=== PATIENT | male | born 1965 | race Caucasian/White ===

== ENCOUNTER 2018-04-01 20:54 | Observation (INO) ==
[2018-04-01] MEDS ORDERED: D5% in Water 1,000 ML IVC PRN (23:16)
[2018-04-01] MEDS ORDERED: Acetaminophen 325 MG TABLET PO PRN (23:16)
[2018-04-01] MEDS ORDERED: Naloxone 0.4 MG/ML INJ IVP PRN (23:16)
[2018-04-01] MEDS ORDERED: *HR* Dextrose 50 % in Water (Syg) 50 ML SYRINGE IVP PRN (23:16)
[2018-04-01] MEDS ORDERED: Dextrose Gel 15 GM/37.5 ML TUBE PO PRN ×2 (23:16)
--- NOTE | 2018-04-01 23:43 | Internal Med History&Physical ---
Date of Encounter: 04/01/18 Time of Encounter: 22:45 Internal Medicine - H&P: HPI Chief complaint: left testicular pain and scortal swelling Admitted From: Hospital to Hospital Transfer Plans for Post Hospital Care: Home History of present illness: Mr. Oliver is a 53 year old male who presents in transfer from [facility] Emergency Department. Patient presented to the ER there with complaints of left-sided testicular pain, scrotal swelling, and redness of the scrotum. Symptoms started abruptly since overnight last night. He had routine labs and imaging performed there suggesting possible testicular abscess versus epididymitis. Of note, there was no evidence of testicular torsion on ultrasound. CT imaging also revealed the testicular lesion to be suspicious for either abscess, hematoma, or complex hydrocele. Phone call was made to Dr. Calvillo from [facility] and he recommended transfer to [place], admission to hospitalist with IV antibiotics, and that he would consult on patient. I accepted the patient in transfer after discussing with [place] staff. Upon my assessment of the patient, patient confirms above history. He does chronic intermittent self-catheterization due to incomplete bladder emptying. He has had recurrent UTI in the past, but he has never had pyelonephritis. He is not sexually active presently. He denies any prior history of prostate problems. He does admit to having had subjective fevers and chills since yesterday. He denies any nausea, vomiting, or diarrhea. Past Med Surg Social Fam HX - Past Medical History Attestation: Yes The following information was validated with the patient. Source: patient, other ([facility] ER records) Medical history: COPD, coronary artery disease, diabetes, hypertension - Past Surgical History Surgical History: angioplasty/stent, coronary bypass (CABG) Additional surgical history: CABG x2 - Social History Smoking Status: Former smoker Smokeless Tobacco Status: Yes (Occasional) Alcohol use: rarely Drug use: none Current living situation: Home Activity Level: Independent ambulation Recent Out of Country Travel Within the Last 8 Weeks: No - Family History Mother History Unknown: Yes Father History Unknown: Yes Internal Medicine - H&P: Meds Aspirin 81 mg PO QAM 04/01/18 [History] Atorvastatin 40 mg PO DAILY 04/01/18 [History] Lantus Solostar 10 units SQ HS 04/01/18 [History] Loperamide [Imodium] 2 mg PO Q6H PRN 04/01/18 [History] Metoprolol [Lopressor] 12.5 mg PO BID 04/01/18 [History] Allergy/AdvReac Type Severity Reaction Status Date / Time No Known Allergies Allergy Verified 04/01/18 22:51 - Constitutional Constitutional: chills, fever(s), no night sweats - EENT Eyes: no blurry vision, no change in vision Ears: no ear pain, no tinnitus Nose, mouth and throat: no nasal congestion, no sinus pressure, no sore throat - Cardiovascular Cardiovascular ROS IM: no chest pain, no dyspnea, no dyspnea on exertion, no edema, no orthopnea, no paroxysmal nocturnal dyspnea, no syncope - Respiratory Respiratory: no cough, no hemoptysis, no chest congestion, no excessive phlegm production, no change in phlegm color - Gastrointestinal Gastrointestinal: abdominal pain (suprapubic), nausea, vomiting, no diarrhea, no hematemesis, no hematochezia, no melena - Genitourinary Genitourinary ROS male: difficulty urinating, dysuria, flank pain, hematuria, scrotal swelling, testicular mass - Musculoskeletal Musculoskeletal ROS IM: no arthralgias, no back pain - Integumentary Integumentary IM: no rash, no jaundice - Neurological Neurological ROS: no dizziness, no focal weakness, no frequent falls, no headache(s) - Psychiatric Psychiatric: no anxiety, no depression - Endocrine Endocrine IM: no polydipsia, no polyphagia, no polyuria - Allergic/Immunologic Allergic/Immunologic: no wheezing, no GI upset with certain foods - Constitutional Vitals: Temp Pulse Resp BP Pulse Ox 97.6 F 65 14 145/84 99 04/01/18 22:27 04/01/18 22:27 04/01/18 22:27 04/01/18 22:27 04/01/18 22:27 General appearance: Present: cooperative, A&O X 3, pleasant, answers questions appropriately Exam: see below - Head Head exam: Present: normal inspection - Eye Eye exam: Present: EOMI, PERRL. Absent: scleral icterus Pupils: Present: normal accommodation - ENT ENT exam: Present: mucous membranes dry, normal exam, normal oropharynx - Neck Neck exam general surgery: Present: full ROM, supple. Absent: tenderness, nuchal rigidity, thyromegaly - Respiratory Respiratory exam: Present: CTAB. Absent: chest wall tenderness, rales, respiratory distress, rhonchi, wheezes - Cardiovascular Cardiovascular exam: Present: RRR, +S1, +S2. Absent: diastolic murmur, systolic murmur - GI/Abdominal GI/Abdominal exam: Present: normal bowel sounds, soft, tenderness (suprapubic). Absent: guarding, hepatomegaly, mass, rebound, splenomegaly - exam: Present: circumcision, scrotal swelling (redness, pain, and swelling of left side of scrotum/testicle), testicular tenderness (left). Absent: urethral discharge - Extremities Exam Extremities exam: Present: warm, radial pulses palpable and symmetrical. Absent: calf tenderness, joint swelling, pedal edema, tenderness - Back Exam Back exam: Present: CVA tenderness (L), CVA tenderness (R), normal inspection - Neurological Exam Neurological exam: Present: alert, CN II-XII intact, oriented X3, no focal deficits, strengths equal and symetr throughout - Psychiatric Psychiatric exam: Present: normal affect, normal mood - Skin Skin exam: Present: dry, intact, warm. Absent: rash Internal Med - H&P Results - Labs Labs: I reviewed labs from [place] and they include the following: WBC 11.0 Hemoglobin 10.8 Hematocrit 34.5 Segmented neutrophils 86% Monocytes 7% Lymphocytes 5.6% Urinalysis nitrate positive, leukocyte esterase negative, trace blood in the urine CT of the pelvis reveals complex left intrascrotal fluid collection may be s econdary to left hydrocele, intrascrotal hematoma, or abscess. There also appears to have findings of epididymitis. He also has diffuse scrotal wall thickening and edema. Scrotal ultrasound reveals normal testis with no evidence of torsion. - Assessment and plan (1) Cellulitis of scrotum Current Visit: Yes Status: Acute Assessment and plan: 1. Will culture blood and urine. 2. Will start IV antibiotics to include coverage for GI/ disha (Zosyn/Cipro). 3. Given recurrent UTI and chronic intermittent self cath, will add Vancomcyin to cover MRSA. Patient denies history of MRSA. 4. Consult urology; Dr. Calvillo already spoke with [facility] staff [place]. (2) Left testicular pain Current Visit: Yes Status: Acute Assessment and plan: 1. Patient has pain on left testicle. 2. No torsion on ultrasound. 3. IV antibiotics and pain control. 4. Urology consulted. (3) IDDM (insulin dependent diabetes mellitus) Current Visit: Yes Status: Chronic Assessment and plan: 1. Will place on SSI and monitor glucose. 2. Resume basal insulin tomorrow. (4) CAD (coronary artery disease) Current Visit: Yes Status: Chronic Assessment and plan: 1. No anginal symptoms. 2. Will obtain baseline EKG and place on monitor for now. 3. Resume home meds as appropriate once meds are updated and verified. Qualifiers: Coronary Disease-Associated Artery/Lesion type: [place] artery [place] vs. transplanted heart: [place] heart Associated angina: without angina Qualified Code(s): I25.10 - Atherosclerotic heart disease of [place] coronary artery without angina pectoris (5) DVT prophylaxis Current Visit: Yes Status: Acute Assessment and plan: 1. Heparin SQ.
[2018-04-02] MEDS: Insulin LISPRO 300 UNITS/3 ML VIAL SQ SCH ×6 (00:10→21:17)
[2018-04-02] MEDS: 0.9 % Sodium Chloride 1,000 ML IVC SCH ×2 (00:57→11:28)
[2018-04-02] MEDS: Piperacillin/Tazobactam 3.375 GM in 0.9 % Sodium Chloride Mini Bag 100 ML IVPB SCH ×2 (00:59→08:44)
[2018-04-02] MEDS: *HR* HYDROcodone/Acet 5/325 mg TABLET PO PRN ×3 (01:01→17:35)
[2018-04-02 01:08] LABS: Basophils % 0.2 %; Eosinophils # 0.1 K/mcL (0.0-0.6); Eosinophils % 1.1 %; Hematocrit 34.3 % (37.5-50.1); Hemoglobin 10.7 g/dL (12.9-16.9); Immature Granulocytes % 0.3 % (0-4); Lymphocytes % 10.2 %; Mean Corpuscular HGB Conc 31.2 g/dL (31.6-35.5); Mean Corpuscular Hemoglobin 25.3 pg (28.0-33.3); Mean Corpuscular Volume 81.1 fL (83.0-100.0); Mean Platelet Volume 9.7 fL (9.4-12.4); Monocytes # 0.6 K/mcL (0.0-1.3); Monocytes % 5.8 %; Neutrophils # 7.8 K/mcL (1.6-8.9); Platelet Count 207 K/mcL (140-400); Red Blood Count 4.23 M/mcL (4.19-5.50); Red Cell Distribution Width 13.1 % (11.5-14.5); Segmented Neutrophils % 82.4 %
[2018-04-02 01:15] LABS: INR 1.2; Prothrombin Time 13.3 Seconds (9.4-12.1)
[2018-04-02 01:17] LABS: Activated Partial Thrombo Time 40.4 Seconds (26.0-36.0)
[2018-04-02 01:29] LABS: Alanine Aminotransferase 25 Units/L (7-52); Albumin 4.4 g/dL (3.5-5.7); Albumin/Globulin Ratio 1.1 (1.1-2.2); Alkaline Phosphatase 83 Units/L (34-104); Aspartate Amino Transferase 17 Units/L (13-39); BUN/Creatinine Ratio 26 (6-26); Bilirubin,Total 0.5 mg/dL (0.3-1.0); Blood Urea Nitrogen 33 mg/dL (6-20); Calcium 10.5 mg/dL (8.6-10.3); Carbon Dioxide 30 mEq/L (23-29); Chloride 101 mEq/L (98-107); Globulin 4.1 g/dL (2.4-3.5); Glucose 83 mg/dL (70-105); Osmolality,Calculated 296 (280-300); Potassium 3.9 mEq/L (3.5-5.1); Sodium 140 mEq/L (136-145); Total Protein 8.5 g/dL (6.4-8.9); eGFR For Non-African Americans 58 (> 60)
[2018-04-02] MEDS: *HR* Heparin 5,000 UNIT/ML VIAL SQ SCH ×2 (06:25→17:10)
--- NOTE | 2018-04-02 07:52 | Urology - Consult Note ---
Date of Encounter: 04/02/18 Time of Encounter: 07:46 - Assessment and Plan (1) Epididymo-orchitis Current Visit: Yes Status: Acute Assessment and plan: Outside ultrasound and CT scan suggest possibility of a scrotal abscess as there was a complex fluid collection near the testicle and near the penoscrotal junction. My exam today is consistent with epididymal orchitis without obvious evidence for a abscess. No indication for repeat imaging or surgical intervention at this time. He has not experienced a fever or signs of sepsis. I recommend 2 weeks of cultures of antibiotic antibiotics - microbiology is pending. Continue intermittent catheterizations which he performs twice per day. We will obtain renal/bladder ultrasound to evaluate for a nidus because of his recurrent UTIs. He also should maintain strict scrotal rest with scrotal support. The nodular firmness to the testicle can take a few weeks to resolve in this setting. We'll continue to follow the patient while he is in the hospital. Urology CN:HPI Consult date: 04/02/18 History of present illness: pt transferred from [place] last night. 24 hour hx of left scrotal swelling. no fever. pt performs SIC twice per day has had issues with UTIs over the last few months and treated in the ER. no hospitalization. has been seen by [facility] in the past. Past Med Surg Social Fam HX - Past Medical History Medical history: COPD, coronary artery disease, diabetes, hypertension Psychiatric history: bipolar, depression, schizophrenia - Past Surgical History Surgical History: angioplasty/stent, coronary bypass (CABG) Additional surgical history: CABG x2 - Social History Smoking Status: Former smoker Smokeless Tobacco Status: Yes (Occasional) Alcohol use: rarely Drug use: none - Family History Mother History Unknown: Yes Father History Unknown: Yes Medications and Allergies Aspirin 81 mg PO QAM 04/01/18 [History] Atorvastatin 40 mg PO DAILY 04/01/18 [History] Lantus Solostar 10 units SQ HS 04/01/18 [History] Loperamide [Imodium] 2 mg PO Q6H PRN 04/01/18 [History] Metoprolol [Lopressor] 12.5 mg PO BID 04/01/18 [History] Allergy/AdvReac Type Severity Reaction Status Date / Time No Known Allergies Allergy Verified 04/01/18 22:51 Review of Systems - Constitutional fatigue, no chills, no fever(s) - EENT Nose, mouth and throat: no dizziness - Cardiovascular no chest pain - Respiratory no cough - Gastrointestinal no abdominal pain - Genitourinary dysuria, scrotal swelling, testicular mass, testicular pain - Musculoskeletal back pain - Integumentary no erythema - Neurological no confusion - Psychiatric no anxiety - Hematologic/Lymphatic no easy bleeding - Allergic/Immunologic no throat swelling Exam Initial Vital Signs Temp Pulse Resp BP Pulse Ox 97.6 F 65 14 145/84 99 04/01/18 22:27 04/01/18 22:27 04/01/18 22:27 04/01/18 22:27 04/01/18 22:27 - General physical appearance Present: well developed, no distress - Eyes Present: PERRL - ENT Present: normal nares - Neck Present: no masses - Respiratory Present: normal respiratory effort - Cardiovascular Cardiovascular exam IM: RRR - Abdomen Abdomen: Present: soft. Absent: distended, suprapubic tenderness - Genitourinary normal penis with no external lesions - Integumentary Absent: no rash - Neurologic Present: normal coordination. Absent: disoriented, confused - Additional Findings Left testicle is double the size of the right. It is firm and tender. This is consistent with epididymal orchitis. I carefully evaluated the area including the scrotal skin, penis, penoscrotal junction. No evidence of obvious scrotal abscess. There is minimal induration of the skin and it is not fixed to the testicle. Urology Results - Labs 04/02/18 00:13 04/02/18 00:12 Abnormal lab results Hgb 10.7 g/dL (12.9-16.9) L 04/02/18 00:13 Hct 34.3 % (37.5-50.1) L 04/02/18 00:13 MCV 81.1 fL (83.0-100.0) L 04/02/18 00:13 MCH 25.3 pg (28.0-33.3) L 04/02/18 00:13 MCHC 31.2 g/dL (31.6-35.5) L 04/02/18 00:13 PT 13.3 Seconds (9.4-12.1) H 04/02/18 00:12 APTT 40.4 Seconds (26.0-36.0) H 04/02/18 00:12 Carbon Dioxide 30 mEq/L (23-29) H 04/02/18 00:12 BUN 33 mg/dL (6-20) H 04/02/18 00:12 Est GFR (Non-Af Amer) 58 (> 60) L 04/02/18 00:12 Calcium 10.5 mg/dL (8.6-10.3) H 04/02/18 00:12 Globulin 4.1 g/dL (2.4-3.5) H 04/02/18 00:12 Diabetes panel 04/02/18 Range/Units 00:12 Sodium 140 (136-145) mEq/L Potassium 3.9 (3.5-5.1) mEq/L Chloride 101 (98-107) mEq/L Carbon Dioxide 30 H (23-29) mEq/L BUN 33 H (6-20) mg/dL Creatinine 1.29 (0.70-1.30) mg/dL Glucose 83 (70-105) mg/dL Calcium 10.5 H (8.6-10.3) mg/dL AST 17 (13-39) Units/L ALT 25 (7-52) Units/L Alkaline Phosphatase 83 (34-104) Units/L Albumin 4.4 (3.5-5.7) g/dL Calcium panel 04/02/18 Range/Units 00:12 Calcium 10.5 H (8.6-10.3) mg/dL Albumin 4.4 (3.5-5.7) g/dL Pituitary panel 04/02/18 Range/Units 00:12 Sodium 140 (136-145) mEq/L Potassium 3.9 (3.5-5.1) mEq/L Chloride 101 (98-107) mEq/L Carbon Dioxide 30 H (23-29) mEq/L BUN 33 H (6-20) mg/dL Creatinine 1.29 (0.70-1.30) mg/dL Glucose 83 (70-105) mg/dL Calcium 10.5 H (8.6-10.3) mg/dL Adrenal panel 04/02/18 Range/Units 00:12 Sodium 140 (136-145) mEq/L Potassium 3.9 (3.5-5.1) mEq/L Chloride 101 (98-107) mEq/L Carbon Dioxide 30 H (23-29) mEq/L BUN 33 H (6-20) mg/dL Creatinine 1.29 (0.70-1.30) mg/dL Glucose 83 (70-105) mg/dL Calcium 10.5 H (8.6-10.3) mg/dL Total Bilirubin 0.5 (0.3-1.0) mg/dL AST 17 (13-39) Units/L ALT 25 (7-52) Units/L Alkaline Phosphatase 83 (34-104) Units/L Albumin 4.4 (3.5-5.7) g/dL All other labs normal. Consult Discharge Plan - Plan Referrals: NONE,PCP [Primary Care Provider] -
--- NOTE | 2018-04-02 11:50 | Internal Med Progress Note ---
Hospitalist Progress Note - Encounter Date of Encounter: 04/02/18 Time of Encounter: 11:49 - Subjective Interval History: Patient seen and examined this morning. No acute overnight events. Still with scrotal pain. Slightly better. No fevers but feels fold. Denies N/V. c/o Headache. No blurry vision, palpiation, cp or sob. - Exam Vitals: Temp Pulse Resp BP Pulse Ox 97.7 F 66 15 115/74 100 04/02/18 10:07 04/02/18 10:07 04/02/18 10:07 04/02/18 10:07 04/02/18 10:07 Exam: General: In no acute distress. Conversant. Respiratory exam: CTAB. no accessory muscle use, rales, rhonchi, wheezes Cardiovascular exam: RRR, +S1, +S2. no murmur, gallop, rubs. GI/Abdominal exam: Non-tender, Non-distended, normal bowel sounds, soft, no peritoneal signs. exam: No CVA tenderness. Lt testicle enlarged and tender. Twice the size than Rt. No cellulitis or induration noted. Extremities exam: full ROM, no pedal edema, warm, pulses palpable in b/l lower extremities. no calf tenderness Neurological exam: CN II-XII intact, AO X3, no focal deficits. no pronater drift, facial droop, speech deficit Skin exam: No skin rash, ulcer, purpura or ecchymosis. - Assessment and Plan (1) Cellulitis of scrotum Current Visit: Yes Status: Acute (2) Left testicular pain Current Visit: Yes Status: Acute (3) IDDM (insulin dependent diabetes mellitus) Current Visit: Yes Status: Chronic (4) CAD (coronary artery disease) Current Visit: Yes Status: Chronic (5) DVT prophylaxis Current Visit: Yes Status: Acute - Summary of Assessment and Plan Summary of Assessment and Plan: Left testicular pain, scrotal swelling and redness - Transferred from [place]. Urinalysis nitrate positive, leukocyte esterase negative, trace blood in the urine. CT pelvis showed complex left intrascrotal fluid collection ( initially suspected hydrocele, intrascrotal hematoma, abscess vs epididymitis) - Scrotal ultrasound with no evidence of torsion. - chronic self cath and h/o UTI. f/u blood and urine culture. c/w self cath as needed. - On IV antibiotics. Will dc zosyn/cipro. c/w Vancomycin/levaquin. pain control. Will adjust abx based on urine/blood culture. - Urology following. Recommendations appreciated. Likely epididymitis possibly related to self cath. No intervention planned. Will need 2 weeks course of antibiotics. IDDM - c/w SSI and monitor glucose. - Resume basal insulin. No intervention planeed. CAD - No anginal symptoms. h/o severe coronary artery disease with 2 open heart surgery. Hence is DNRCCA - resume home meds DVT prophylaxis - Heparin SQ. - Time Spent with Patient Total time spent is greater than 50% in coordination of care (as documented) at patient's floor/unit and/or counseling patient: Internal Medicine: Result - Labs CBC & Chem 7: 04/02/18 00:13 04/02/18 00:12 Labs: Short CBC 04/02/18 Range/Units 00:13 WBC 9.4 (4.3-11.1) K/mcL Hgb 10.7 L (12.9-16.9) g/dL Hct 34.3 L (37.5-50.1) % Plt Count 207 (140-400) K/mcL Neutrophils # 7.8 (1.6-8.9) K/mcL BMP 04/02/18 00:12 Sodium 140 Potassium 3.9 Chloride 101 Carbon Dioxide 30 H BUN 33 H Creatinine 1.29 Glucose 83 Calcium 10.5 H Liver Function 04/02/18 Range/Units 00:12 Total Bilirubin 0.5 (0.3-1.0) mg/dL AST 17 (13-39) Units/L ALT 25 (7-52) Units/L Alkaline Phosphatase 83 (34-104) Units/L Albumin 4.4 (3.5-5.7) g/dL - ABG Interpretation ABG results: PT/INR, D-dimer PT 13.3 Seconds (9.4-12.1) H 04/02/18 00:12 Consult Discharge Plan - Plan Referrals: NONE,PCP [Primary Care Provider] - ___ (4) CAD (coronary artery disease) Qualifiers: Coronary Disease-Associated Artery/Lesion type: [place] artery [place] vs. transplanted heart: [place] heart Associated angina: without angina Qualified Code(s): I25.10 - Atherosclerotic heart disease of [place] coronary artery witho ut angina pectoris
[2018-04-02] MEDS: Aspirin 81 MG TAB.CHEW PO SCH (16:10)
[2018-04-02 16:21] LABS: Bilirubin,Urine Negative (Negative); Blood,Urine Negative (Negative); Clarity,Urine Clear (Clear); Color,Urine Yellow (Yellow); Glucose,Urine (UA) Normal (Normal); Ketones,Urine Negative (Negative); Leukocyte Esterase,Urine Trace (Negative); Nitrite,Urine Negative (Negative); Protein,Urine Negative (Neg-Trace); Specific Gravity,Urine 1.014 (1.010-1.025); Urobilinogen,Urine Normal (Normal)
[2018-04-02 16:23] LABS: Bacteria,Urine None Seen per hpf (None-Few); Hyaline Casts,Urine None Seen per lpf (None-Few); RBC,Urine 0-3 per hpf (0-3); Squamous Epithelial Cell,Urine Moderate per lpf (None-Few)
[2018-04-02] MEDS: levoFLOXacin 500 MG TABLET PO SCH (17:10)
[2018-04-02] MEDS ORDERED: Insulin DETEMIR 100 UNIT/ML X5UNITS SQ SCH (21:00)
[2018-04-03] MEDS: *HR* Heparin 5,000 UNIT/ML VIAL SQ SCH ×2 (06:11→18:32)
[2018-04-03] MEDS: Insulin LISPRO 300 UNITS/3 ML VIAL SQ SCH ×4 (07:56→20:43)
[2018-04-03] MEDS: Aspirin 81 MG TAB.CHEW PO SCH (07:59)
--- NOTE | 2018-04-03 09:25 | Urology Progress Note ---
<Tiffanie Cian - Last Filed: 04/03/18 09:23> Date of Encounter: 04/03/18 Time of Encounter: 08:05 - Assessment and Plan (1) Epididymo-orchitis Current Visit: Yes Status: Acute Assessment and plan: Patient is a 53-year-old male who presents with a history of epididymo-orchitis. Vital signs are stable and afebrile. White blood cell count is within normal range. Complete renal ultrasound was reassuring, and patient is receiving IV Levaquin. Plan to continue with strict scrotal support and to continue antibi otics 2 weeks after discharge. Progress Note Narrative: Patient seen and examined sitting upright in bed in apparent distress. Nurse at bedside. Patient states scrotal pain is improved. Patient is tolerating normal diet without nausea or vomiting. Patient is voiding frequently and without difficulty. Patient is performing self-catheterization 1-2 times daily. Patient denies fever, chills, flank pain, gross hematuria. Objective Initial Vital Signs Temp Pulse Resp BP Pulse Ox 97.6 F 65 14 145/84 99 04/01/18 22:27 04/01/18 22:27 04/01/18 22:27 04/01/18 22:27 04/01/18 22:27 - General physical appearance Present: well developed, no distress, no pain - Respiratory Present: normal expansion, normal respiratory effort - Abdomen Present: soft, non tender - Genitourinary Present: normal penis with no external lesions tender: left, scrotal mass/hydrocele: left (edema and induration ) - Integumentary Present: no rash, no abnormal pigmentation - Musculoskeletal Present: normal posture - Psychiatric Present: oriented to time, oriented to person, oriented to place, speech is normal, memory intact - Labs 04/02/18 00:13 04/02/18 00:12 Consult Discharge Plan - Plan Referrals: NONE,PCP [Primary Care Provider] - <Junaid Calvillo - Last Filed: 04/04/18 06:31> Date of Encounter: 04/04/18 - Assessment and Plan (1) Epididymo-orchitis Current Visit: Yes Status: Acute Assessment and plan: Patient seen in conjunction with physician casting assistant. Agree with plan and treatment. Objective Initial Vital Signs Temp Pulse Resp BP Pulse Ox 97.6 F 65 14 145/84 99 04/01/18 22:27 04/01/18 22:27 04/01/18 22:27 04/01/18 22:27 04/01/18 22:27 - Labs 04/02/18 00:13 04/02/18 00:12
[2018-04-03] MEDS: *HR* HYDROcodone/Acet 5/325 mg TABLET PO PRN (10:57)
--- NOTE | 2018-04-03 13:21 | Internal Med Progress Note ---
Hospitalist Progress Note - Encounter Date of Encounter: 04/03/18 Time of Encounter: 10:36 - Subjective Interval History: Patient seen and examined this morning. No acute overnight events. Pain slightly better. No fevers, N/V. No blurry vision, palpiation, cp or sob. - Exam Vitals: Temp Pulse Resp BP Pulse Ox 97.9 F 72 16 138/83 98 04/03/18 11:01 04/03/18 11:01 04/03/18 11:01 04/03/18 11:01 04/03/18 11:01 Exam: General: In no acute distress. Conversant. Respiratory exam: CTAB. no accessory muscle use, rales, rhonchi, wheezes Cardiovascular exam: RRR, +S1, +S2. no murmur, gallop, rubs. GI/Abdominal exam: Non-tender, Non-distended, normal bowel sounds, soft, no peritoneal signs. exam: No CVA tenderness. Lt testicle enlarged and tender. Twice the size than Rt. No cellulitis or induration noted. Extremities exam: full ROM, no pedal edema, warm, pulses palpable in b/l lower extremities. no calf tenderness Skin exam: No skin rash, ulcer, purpura or ecchymosis. - Assessment and Plan (1) Cellulitis of scrotum Current Visit: Yes Status: Acute (2) Left testicular pain Current Visit: Yes Status: Acute (3) IDDM (insulin dependent diabetes mellitus) Current Visit: Yes Status: Chronic (4) CAD (coronary artery disease) Current Visit: Yes Status: Chronic (5) DVT prophylaxis Current Visit: Yes Status: Acute - Summary of Assessment and Plan Summary of Assessment and Plan: Left testicular pain, scrotal swelling and redness - Likely from epididymo-orchitis - Scrotal ultrasound with no evidence of torsion. - Kidney ultrasound with bladder wall thickening. No hydornephrosis or nephrolithiasis. - chronic self cath and h/o UTI. f/u blood and urine culture. c/w self cath as needed. - On IV antibiotics. c/w Vancomycin/levaquin. pain control. Will adjust abx based on urine/blood culture. - Will need 2 weeks course of antibiotics on discharge IDDM - c/w SSI and monitor glucose. - Resume basal insulin. Increased levemir to 15. CAD - No anginal symptoms. h/o severe coronary artery disease with 2 open heart surgery. Hence is DNRCCA - resume home meds. - Unclear pt's EF. Needs follow up with PCP for starting lisinopril and metoprolol succinate. Will hold given ECHO report not available. No indication for now to obtain one. DVT prophylaxis - Heparin SQ. - Time Spent with Patient Total time spent is greater than 50% in coordination of care (as documented) at patient's floor/unit and/or counseling patient: Internal Medicine: Result - Labs CBC & Chem 7: 04/02/18 00:13 04/02/18 00:12 Labs: Urine 04/02/18 Range/Units 15:35 Urine Color Yellow (Yellow) Urine Clarity Clear (Clear) Urine pH 6.0 (5.0-8.0) pH Units Ur Specific [place] 1.014 (1.010-1.025) Urine Protein Negative (Neg-Trace) mg/dL Urine Glucose (UA) Normal (Normal) mg/dL - ABG Interpretation ABG results: PT/INR, D-dimer PT 13.3 Seconds (9.4-12.1) H 04/02/18 00:12 - Impressions Impressions Retroperitoneum Ultrasound 04/02/18 14:00 IMPRESSION: Bladder wall appears thickened and there is some low level debris in the bladder. No focal asymmetric bladder mass. Kidneys are unremarkable in appearance without hydronephrosis or nephrolithiasis. D/ / 04/02/2018 15:43:06 Mitra Hyde MD / bao Interpreting Provider: Mitra Hyde MD Consult Discharge Plan - Plan Referrals: NONE,PCP [Primary Care Provider] - (4) CAD (coronary artery disease) Qualifiers: Coronary Disease-Associated Artery/Lesion type: [place] artery [place] vs. transplanted heart: [place] heart Associated angina: without angina Qualified Code(s): I25.10 - Atherosclerotic heart disease of [place] coronary artery without angina pectoris
[2018-04-03] MEDS: levoFLOXacin 500 MG TABLET PO SCH (18:33)
[2018-04-03] MEDS ORDERED: Insulin DETEMIR 100 UNIT/ML X5UNITS SQ SCH (21:00)
[2018-04-04] MEDS ORDERED: Ondansetron ODT 4 MG TAB.RAPDIS SL PRN (04:55)
[2018-04-04] MEDS: *HR* Heparin 5,000 UNIT/ML VIAL SQ SCH (05:44)
--- NOTE | 2018-04-04 08:18 | Urology Progress Note ---
Date of Encounter: 04/04/18 Time of Encounter: 08:16 - Assessment and Plan (1) Epididymo-orchitis Current Visit: Yes Status: Acute Assessment and plan: Urine culture was negative. Recommend continuing antibiotics for 2 weeks. B actrim or Levaquin is appropriate. Maintain strict scrotal support and rest. Firmness and nodularity of testicle may take 2-4 weeks to completely resolve. Patient to continue intermittent catheterization. Follow-up with urology in 2-4 weeks. We will reexamine the patient at that time and recheck urine culture. We will reorder his self-catheterization at that appointment. He also wishes to discuss erectile dysfunction at that time. Okay with discharge per urology standpoint Progress Note Subjective: feels better, still having pain Objective Initial Vital Signs Temp Pulse Resp BP Pulse Ox 97.6 F 65 14 145/84 99 04/01/18 22:27 04/01/18 22:27 04/01/18 22:27 04/01/18 22:27 04/01/18 22:27 - General physical appearance Present: no distress - Additional Exam Firm left testicle continues. Slight improvement. No evidence of scrotal skin abscess or evidence of worsening infection on exam - Labs 04/02/18 00:13 04/02/18 00:12 Consult Discharge Plan - Plan Referrals: NONE,PCP [Primary Care Provider] -
[2018-04-04] MEDS: Insulin LISPRO 300 UNITS/3 ML VIAL SQ SCH ×2 (08:49→11:30)
[2018-04-04] MEDS: Aspirin 81 MG TAB.CHEW PO SCH (08:50)
[2018-04-04] MEDS: *HR* HYDROcodone/Acet 5/325 mg TABLET PO PRN ×2 (08:50→14:51)
[2018-04-04 10:26] VITALS: BP 101/68
--- NOTE | 2018-04-04 13:33 | Discharge Summary ---
- NOTES TO OUTPATIENT PROVIDER Notes to Outpatient Provider: Patient to finish 1 more days of Levaquin 500 daily to complete 2 weeks course of antibiotics for epididymal orchitis. Follow-up with urology in 2-4 weeks. Patient to wear scrotal support and continue intermittent self-catheterization. Orders not resulted at time of discharge: Pending orders 04/01/18 23:16 Culture,Blood [BC] Stat 04/04/18 10:13 C diff [C.difficile Toxin PCR (>=2yo)] [MOLMIC] Stat Date of Encounter: 04/04/18 Time of Encounter: 13:33 - Discharge Diagnosis (1) Left testicular pain Priority: Primary Status: Acute (2) IDDM (insulin dependent diabetes mellitus) Priority: Secondary Status: Chronic (3) CAD (coronary artery disease) Priority: Secondary Status: Chronic Qualifiers: Coronary Disease-Associated Artery/Lesion type: [place] artery [place] vs. transplanted heart: [place] heart Associated angina: without angina Qualified Code(s): I25.10 - Atherosclerotic heart disease of [place] coronary artery without angina pectoris (4) DVT prophylaxis Priority: Secondary Status: Acute (5) Epididymo-orchitis Priority: Primary Status: Acute Hospital course: Mr. Oliver is a 53 year old male past medical history of diabetes, CAD, HTN, COPD was transferred from [facility] with complaint of left testicular pain score swelling and redness. Patient had ultrasound which ruled out portion. CT and ultrasound suspicious of epididymitis versus testicular abscess versus hydrocele. Urology consult was obtained who did not patient had epididymo- orchitis. Patient was initially started on vancomycin given previous UTIs as well as Zosyn and ciprofloxacin. Patient's Zosyn and Cipro was stopped and changed to Levaquin. Blood culture and urine culture did not grow any org anisms. Patient had ultrasound of kidney which did not show any stones or hydronephrosis Patient's diabetes was managed with insulin. Patient remained hemodynamically stable throughout his stay. Stable to be discharged to home to continue Levaquin to finish 2 weeks of antibiotic treatment. Discharge discussed with: patient, nurse, social work - Time Spent with Patient Total time spent providing and/or coordinating discharge services: Greater than 30 minutes (35) - Discharge Medications Prescriptions: levoFLOXacin [Levaquin] 500 mg PO Q24H 11 Days #11 tablet Home Medications: Aspirin [Lo-Dose Aspirin EC] 81 mg PO DAILY 04/01/18 [History] Atorvastatin [Lipitor] 40 mg PO HS 04/01/18 [History] Insulin Glargine,Hum.rec.anlog [Lantus Solostar] 20 unit SQ HS 04/01/18 [History] Loperamide [Imodium] 2 mg PO Q6H PRN 04/01/18 [History] Metoprolol [Lopressor] 12.5 mg PO BID 04/01/18 [History] levoFLOXacin [Levaquin] 500 mg PO Q24H 11 Days #11 tablet 04/04/18 [Rx] Allergies/Adverse Reactions: Allergy/AdvReac Type Severity Reaction Status Date / Time No Known Allergies Allergy Verified 04/01/18 22:51 Date of admission: 04/01/18 22:09 Primary care physician: PCP NONE Consults: 04/01/18 23:19 Consult to Physician [CONS] Routine Consulting Provider: Junaid Calvillo Reason for Consult: testicular abscess; scrotal cellulitis Call Completed: Yes Discharging clinician: Francesco Galindo - Constitutional Vitals: Temp Pulse Resp BP Pulse Ox 97.5 F L 72 16 101/68 95 04/04/18 10:19 04/04/18 10:19 04/04/18 10:19 04/04/18 10:19 04/04/18 10:19 General appearance: Present: cooperative, A&O X 3, pleasant, answers questions appropriately Exam: General: In no acute distress. Conversant. Respiratory exam: CTAB. no accessory muscle use, rales, rhonchi, wheezes Cardiovascular exam: RRR, +S1, +S2. no murmur, gallop, rubs. GI/Abdominal exam: Non-tender, Non-distended, normal bowel sounds, soft, no peritoneal signs. exam: No CVA tenderness. Lt testicle enlarged and tender. Twice the size than Rt. No cellulitis or induration noted. Extremities exam: full ROM, no pedal edema, warm, pulses palpable in b/l lower extremities. no calf tenderness Skin exam: No skin rash, ulcer, purpura or ecchymosis. - Patient Status Disposition: Home, Self-Care Condition: Fair - Discharge Instructions Follow Up With: Lul Worley MD [Partnered Physician] -
[2018-04-04] MEDS ORDERED: Aminoglycoside Consult 1 EACH MC ONE (15:59)
--- NOTE | 2018-04-05 22:42 | Electrocardiograph Report ---
[address] [place], [place] [address] Test Date: 2018-04-02 Pat Name: Mor Oliver Department: 115 Room: 3A36 Gender: M [employer]: : [id number] Requested By: Eliud Chua Order Number: [id number] Reading MD: Dominick Virgen Measurements Intervals [place] Rate: 70 P: 48 [place]: 172 QRS: 53 QRSD: 97 T: 47 QT: 419 QTc: 440 Interpretive Statements SINUS RHYTHM POSSIBLE INFERIOR MYOCARDIAL INFARCTION, PROBABLY OLD Electronically Signed On 04-05-2018 22:40:32 EST by Dominick Virgen
== END 2018-04-04 16:00 | disposition home or self-care (01) ==
LOC: 3ANU → SUATTDRO 22:09
PROVIDERS: ADMIT Pediatrics; ATTEND Internal Medicine